=== PATIENT | male | born 1995 | race African-American/Black ===

== ENCOUNTER 2020-07-16 00:14 | Emergency (ER) | payer MEDICAID ==
[~2020-07-16] VITALS: Ht 182.9 cm; Wt 88.0 kg
[2020-07-16] MEDS ORDERED: LORAZEPAM 1MG TABLET PO ONE (02:15)
[2020-07-16 06:45] VITALS: BP 123/66
== END 2020-07-16 07:23 | disposition home or self-care (01) ==
LOC: ER 00:14
DX: F23 Brief psychotic disorder (principal); I49.9 Cardiac arrhythmia, unspecified
CPT/HCPCS: 93005; 99285

== ENCOUNTER 2021-12-17 19:43 | Emergency (ER) | payer MEDICAID ==
[~2021-12-17] VITALS: Ht 182.9 cm; Wt 100.0 kg
[2021-12-17 20:09] VITALS: BP 148/99
[2021-12-17] MEDS ORDERED: KETOROLAC 30MG/ML VIAL IV STA (21:32)
[2021-12-17] MEDS ORDERED: ONDANSETRON HCL 4MG/2ML INJ IV STA (21:32)
[2021-12-17] MEDS ORDERED: SODIUM CHLORIDE 0.9% 1,000 ML IV ONE (21:45)
[2021-12-17 23:06] LABS: BASOPHILS % 0.3 % (0.0-2.0); EOSINOPHILS % 0.2 % (0.0-5.0); HEMATOCRIT. 43.6 % (42.0-52.0); HEMOGLOBIN. 15.3 g/dL (14.0-18.0); LYMPHOCYTES % 12.4 % (20.0-50.0); MEAN CORPUSCULAR HEMOGLOBIN 31.4 pg (28.0-32.0); MEAN CORPUSCULAR VOLUME 89.4 fL (80.0-94.0); MEAN PLATELET VOLUME 8.5 fl (7.4-10.4); MONOCYTES % 6.6 % (2.0-8.0); NEUTROPHILS % 80.5 % (40.0-76.0); PLATELET 184 x1000/uL (130-400); RED BLOOD CELL COUNT 4.87 mill/uL (4.7-6.1); RED CELL DISTRIBUTION WIDTH 13.2 % (11.6-14.6)
[2021-12-17 23:23] LABS: CHLORIDE 105 mEq/L (98-107)
[2021-12-18] MEDS ORDERED: [UNRECOGNIZED DRUG - CODE] MM (00:56)
[2021-12-18] MEDS ORDERED: NAP5EC MT (00:56)
[2021-12-18 01:59] LABS: CLARITY URINE CLEAR (CLEAR); COLOR URINE YELLOW (YELLOW); KETONES URINE 2+ (NEGATIVE); LEUKOCYTE ESTERASE URINE NEGATIVE (NEGATIVE); NITRITE URINE NEGATIVE (NEGATIVE); OCCULT BLOOD URINE NEGATIVE (NEGATIVE); PH URINE 6.5 (4.5-8.0); PROTEIN URINE NEGATIVE (NEGATIVE); SPECIFIC GRAVITY URINE 1.017 (1.005-1.030)
== END 2021-12-18 05:54 | disposition home or self-care (01) ==
LOC: ER 19:43
DX: B34.9 Viral infection, unspecified (principal); Z20.822 Contact with and (suspected) exposure to COVID-19
CPT/HCPCS: 36415; 71045; 80053; 81003; 83605; 84145; 85025; 87040; 87086; 87426; 87804; 96361; 96374; 96375; 99284; J1885; J2405; J7030